=== PATIENT | male | born 1980 | race Caucasian/White ===

== ENCOUNTER 2019-02-27 16:29 | Emergency (ER) | payer SELFPAY ==
[~2019-02-27] VITALS: Ht 165.1 cm; Wt 70.0 kg
[2019-02-27] MEDS ORDERED: HYDROCODONE/ACETAMINOPHEN 5/325MG TABLET PO ONE (18:15)
[2019-02-27] MEDS ORDERED: LIDOCAINE 1%/EPI 1:100,000 10 ML VIAL IJ ONE (18:15)
[2019-02-27] MEDS ORDERED: IBUPROFEN 600MG TABLET PO ONE (18:15)
[2019-02-27] MEDS ORDERED: CEPHALEXIN 250MG CAPSULE PO ONE (18:15)
[2019-02-27] MEDS ORDERED: BACITRACIN ZINC OINT UDPKT TOP ONE (18:15)
[2019-02-27] MEDS ORDERED: TETANUS, DIPHTHERIA, PERTUSSIS VAC/PF 0.5ML (>7YR OLD) IM ONE (18:15)
[2019-02-27] MEDS ORDERED: LIDOCAINE HCL/EPINEPHRINE 1%-EPI 1:100,000 20 ML VIAL INFIL ONE (18:30)
[2019-02-27 20:25] VITALS: BP 118/85
== END 2019-02-27 20:27 | disposition home or self-care (01) ==
LOC: ER 16:29
DX: S61.451A Open bite of right hand, initial encounter (principal); W54.0XXA Bitten by dog, initial encounter; Y93.89 Activity, other specified; Y92.89 Other specified places as the place of occurrence of the external cause; Y99.8 Other external cause status
CPT/HCPCS: 12002; 90471; 90715; 99284; J3490